=== PATIENT | female | born 1955 | race Caucasian/White ===

== ENCOUNTER 2018-05-10 08:46 | Day surgery (SDC) | payer BC ==
[~2018-05-10 08:46] MED LIST: Metoclopramide 10 MG/2 ML SDV IV PRN; Sodium Chloride 0.9% 1,000 ML IV SCH
[2018-05-10] MEDS ORDERED: Glycopyrrolate 0.2 MG/ML 2 ML SDV ONE (11:40)
[2018-05-10] MEDS ORDERED: Midazolam 1 MG/ML 2 ML SDV ONE (11:40)
[2018-05-10] MEDS ORDERED: Propofol 1,000 MG/100 ML SDV ONE (11:40)
[2018-05-10 12:53] VITALS: BP 130/66
--- NOTE | 2018-05-10 14:40 | OR ---
DATE OF OPERATION: 05/10/2018 PREOPERATIVE DIAGNOSIS: Personal history of adenomatous polyp. POSTOPERATIVE DIAGNOSIS: Personal history of adenomatous polyp. PROCEDURE: Colonoscopy with polypectomy. ANESTHESIA: MAC. ESTIMATED BLOOD LOSS: Minimal. COMPLICATIONS: None. INDICATION FOR THE PROCEDURE: The patient is a 63-year-old female who 3 months ago had colonoscopy. She was found to have a large sessile polyp in the mid transverse colon. This was resected in piecemeal fashion. The patient is brought back today for a repeat colonoscopy to assess the polypectomy site and further excision of tissue as needed. DESCRIPTION OF THE PROCEDURE: Informed consent was obtained from the patient. The patient was taken to the operating room and placed on table in left lateral decubitus position. Monitored anesthesia care was administered. Digital rectal exam was performed and was normal. Colonoscope then advanced through the anus, directed toward the cecum. Cecum was reached by identifying the location of appendiceal orifice and ileocecal valve. Colonoscope was then slowly withdrawn. A medium-sized sessile polyp noted in the transverse colon. This was resected with a hot snare polypectomy technique. Polyp appeared to be resected completely. No additional polyps noted. Colonoscope was then withdrawn. FINDINGS: Mid transverse polyp, now resected. RECOMMENDATIONS: We will follow up on pathology again. Otherwise, we would recommend repeat surveillance colonoscopy in 3 years. MIGUEL ÁNGEL /[id number]
== END 2018-05-10 13:05 | disposition home or self-care (01) ==
LOC: LB.SDS 08:46
PROVIDERS: ATTEND Surgery
DX: D12.3 Benign neoplasm of transverse colon (principal); Z85.038 Personal history of other malignant neoplasm of large intestine; Z95.0 Presence of cardiac pacemaker
CPT/HCPCS: 45378; 45385; 88305; J2250; J2704; J3490; J7030

== ENCOUNTER 2022-02-17 09:28 | Day surgery (SDC) | payer BC ==
[2022-02-17] MEDS ORDERED: Propofol 200 MG/20 ML SDV ONE (11:20)
[2022-02-17 11:54] VITALS: BP 134/71; PULSE 59
== END 2022-02-17 12:42 | disposition home or self-care (01) ==
LOC: LB.SDS 09:28
PROVIDERS: ATTEND Surgery
DX: Z12.11 Encounter for screening for malignant neoplasm of colon (principal); Z86.010 Personal history of colon polyps
CPT/HCPCS: J2704; J7030